=== PATIENT | male | born 1985 | race African-American/Black ===

== ENCOUNTER 2017-05-17 07:40 | Observation (INO) ==
--- NOTE | 2017-05-17 08:20 | Emergency Department Note ---
Disposition Clinical Impression: Abdominal pain Qualifiers: Abdominal location: epigastric Qualified Code(s): R10.13 - Epigastric pain Pancreatitis Qualifiers: Chronicity: acute Pancreatitis type: unspecified pancreatitis type Acute pancreatitis complication: no infection or necrosis Qualified Code(s): K85.90 - Acute pancreatitis without necrosis or infection, unspecified Intractable vomiting Qualifiers: Vomiting type: unspecified Nausea presence: with nausea Qualified Code(s): R11.2 - Nausea with vomiting, unspecified Disposition: Admitted As Inpatient Condition: Fair Referrals: NO,PCP [Primary Care Provider] - Forms: Work/School Release, ED Satisfaction Letter Abdominal Pain HPI - General Chief Complaint: ED Abdominal Pain Stated Complaint: abd cramping Time Seen by Provider: 05/17/17 08:13 Source: patient Mode of arrival: private vehicle Limitations: no limitations Nursing Notes Reviewed: Yes Vital Signs Reviewed: Yes - History of Present Illness HPI Narrative: Patient reports awakening at 2 AM with pain in the epigastric region which is described as sharp and cramping. He states it is there all the time occasionally just eases up a little bit. He has had 3 episodes of vomiting with the pain. Emesis has been without blood or mucus. He notes the pain is a little worse with deep breath but denies anything else really affecting it. The pain is not radiated to his chest or back. He has not had diarrhea and has had a normal bowel movement. He denies fevers, chills, weakness or dizziness. He is not having diffuse body aches or rashes. He states it feels like a bad flu. He denies chest pain, cough or shortness of breath. He denies frequent use of nonsteroidal medication or any alcohol. Denies any abdominal surgeries in the past. He states he has had similar pain in the past with opiate withdrawal but he has been clean for 2-3 months and has been on monthly Vivitrol shots. He relates his last oral intake was pizza yesterday afternoon and evening. He denies history of previous food intolerance. He relates with the previous withdrawal type symptoms he has been through CT, labs and ultrasound without finding abnormality. Pt Subjective Complaint: abdominal pain Onset (ago): hour(s) (6) Consistency: constant, Worsening Location: RUQ, epigastric Pain Severity: severe Pain Scale: 10 Quality: cramping, sharp Radiation: none Migration to: no migration Improves with: nothing Worsens with: other (Deep breath) Context: history of similar episodes Associated symptoms: Reports: nausea, vomiting. Denies: diarrhea, fever, chills , constipation, dysuria, hematemesis, hematochezia, melena, hematuria, anorexia , syncope Treatments prior to arrival: none - Related Data Home Medications Medication Instructions Recorded Confirmed Naltrexone Microspheres [Vivitrol] 380 mg IM QMONTH 05/17/17 05/17/17 Allergies Allergy/AdvReac Type Severity Reaction Status Date / Time No Known Allergies Allergy Verified 05/17/17 07:41 All systems ED: reviewed and negative except as stated. Abdominal Pain PMH - Past Medical History Medical history: Reports: no medical history, other (Reports previous opiate abuse, obesity) Male Surgical History: Reports: no surgical history, other (Excision of a gland from neck) Psychiatric history: Reports: no psych history - Social History Smoking status: Former smoker Alcohol use: Reports: rarely Drug use: Reports: marijuana Physical Exam - General Limitations: no limitations General appearance: alert, in distress - Head Head exam: atraumatic, normocephalic, normal inspection - Eye Eye exam: Present: normal appearance, PERRL, EOMI. Absent: scleral icterus, conjunctival injection - ENT ENT exam: normal exam, normal oropharynx, mucous membranes moist - Neck Neck exam: Present: normal inspection, full ROM, trachea midline - Chest Chest inspection: Present: normal inspection, symmetric chest wall rise. Absent : tenderness - Respiratory Respiratory exam: Present: normal lung sounds bilaterally. Absent: respiratory distress, wheezes, prolonged expiratory phase - Cardiovascular Cardiovascular exam: Present: regular rate, normal rhythm, normal heart sounds. Absent: tachycardia - Abdominal Exam Abdominal exam: Present: soft, normal bowel sounds. Absent: distention, guarding, rebound, rigidity, psoas sign, obturator sign, tenderness at McBurney' s Point, hernia Abdominal tenderness: Present: RUQ, mild, moderate - Extremities Exam Extremities exam: Present: normal inspection, full ROM, normal capillary refill. Absent: tenderness, pedal edema - Expanded Lower Extremity Exam Neurovascular/Tendon exam: Present: normal capillary refill. Absent: motor deficit, sensory deficit, tendon deficit Gait: observed and normal - Back Exam Back exam: Present: normal inspection, full ROM. Absent: tenderness, CVA tenderness (R), CVA tenderness (L) - Neurological Exam Neurological exam: Present: alert, oriented X3 - Psychiatric Psychiatric exam: Present: normal affect, normal mood - Skin Skin exam: Present: warm, dry, intact, normal color. Absent: diaphoresis, pallor Course Course Narrative: 924: Has Been Discussed with the Patient and Family. He Continues with Nausea and Vomiting. His Evaluation Is Largely Unremarkable Other Than a Slightly Elevated Amylase. At This Point He Is Not in Condition to Be Able to Be Discharged Home and I Will Speak with Dr. Varma about Continuation of IV Fluids. Patient States That He Does Not Want and Cannot Take Other Pain Medicines with His History of Opiate Dependence and His Monthly Vivitrol shot. Patient has been written for a dose of IV lorazepam and ketorolac. Vital Signs Temperature 97.6 F 05/17/17 07:43 Pulse Rate 56 05/17/17 07:43 Respiratory Rate 18 05/17/17 07:43 Blood Pressure 150/75 05/17/17 07:43 O2 Sat by Pulse Oximetry 96 05/17/17 07:43 Temperature 97.6 F 05/17/17 07:44 Pulse Rate 56 05/17/17 07:44 Respiratory Rate 18 05/17/17 07:44 Blood Pressure 150/75 05/17/17 07:44 O2 Sat by Pulse Oximetry 96 05/17/17 07:44 Oxygen Delivery Oxygen Delivery Room Air Abdominal Pain - Differential Diagnosis Differential Diagnosis: Likely: abdominal pain non-specific, gastroenteritis, pancreatitis, other (Biliary colic) - Medical Records Medical records reviewed: Yes I reviewed the patient's medical records. CT/CT abd pelvis wo no iv no oral IMPRESSION: 1. No acute intra-abdominal process identified. D/ / Joseph Mcdaniel MD / Joseph Mcdaniel MD US/US gall bladder IMPRESSION: Unremarkable right upper quadrant ultrasound. D/ / Coleman Cuenca MD / Coleman Cuenca MD - Lab Data Lab results reviewed: Yes I reviewed the patient's lab results. Result diagrams: 05/17/17 08:29 05/17/17 08:29 Lab Results 05/17/17 05/17/17 Range/Units 08:29 08:29 WBC 13.7 H (4.3-11.1) K/mcL RBC 5.01 (4.19-5.50) M/mcL Hgb 15.9 (12.9-16.9) g/dL Hct 45.5 (37.5-50.1) % MCV 90.8 (83.0-100.0) fL MCH 31.7 (28.0-33.3) pg MCHC 34.9 (31.6-35.5) g/dL RDW 12.6 (11.5-14.5) % Plt Count 335 (140-400) K/mcL MPV 9.4 (9.4-12.4) fL Immature Gran % 0.5 (0-4) % Seg Neutrophils % 83.6 % Lymphocytes % 10.6 % Monocytes % 4.8 % Eosinophils % 0.1 % Basophils % 0.4 % Neutrophils # 11.5 H (1.6-8.9) K/mcL Lymphocytes # 1.5 (0.6-4.6) K/mcL Monocytes # 0.7 (0.0-1.3) K/mcL Eosinophils # 0.0 (0.0-0.6) K/mcL Basophils # 0.1 (0.0-0.2) K/mcL Sodium 141 (136-145) mEq/L Potassium 3.9 (3.5-4.5) mEq/L Chloride 105 (98-109) mEq/L Carbon Dioxide 23 (19-29) mEq/L BUN 15 (8-26) mg/dL Creatinine 1.11 (0.72-1.25) mg/dL Est GFR ( Amer) > 60 (> 60) Est GFR (Non-Af Amer) > 60 (> 60) BUN/Creatinine Ratio 14 (6-26) Glucose 125 H (70-99) mg/dL Calculated Osmolality 294 (280-300) Calcium 10.0 (8.6-10.8) mg/dL Total Bilirubin 0.5 (0.2-1.2) mg/dL Direct Bilirubin 0.2 (0.0-0.5) mg/dL Indirect Bilirubin 0.3 (0.0-1.2) mg/dL AST 23 (5-34) Units/L ALT 35 (0-55) Units/L Alkaline Phosphatase 90 (38-126) Units/L Serum Total Protein 8.4 H (6.0-8.3) g/dL Albumin 4.3 (3.5-5.0) g/dL Globulin 4.1 H (2.4-3.5) g/dL Albumin/Globulin Ratio 1.0 L (1.1-2.2) Amylase 252 H (25-125) Units/L Lipase 50 (8-78) Units/L - Radiology Data Radiology results reviewed: Yes I reviewed the patient's radiology results. CT is performed of the abdomen and pelvis without IV oral contrast. Case lungs are free of infiltrate, effusion or mass. The liver, spleen and pancreas appear normal. The gallbladder is not distended or with wall thickening. No radiopaque stones are seen. The pancreas appears normal without inflammatory change. Kidneys are without stone or obstruction. The aorta appears normal in caliber. Bowel is without inflammation, obstruction or perforation. Adnexa is not well visualized but there is no evidence for inflammation in the right lower quadrant. No other acute abnormalities seen to explain this patient's pain. This is on my interpretation. Impressions Abdomen/Pelvis CT 05/17/17 08:20 IMPRESSION: No acute intra-abdominal or intrapelvic process. D/ / Clark Arriola MD / Clark Arriola MD Interpreting Provider: Clark Arriola MD
[2017-05-17] MEDS ORDERED: Dicyclomine 20 MG/2 ML AMPUL IM ONE (08:21)
[2017-05-17] MEDS ORDERED: 0.9 % Sodium Chloride 1,000 ML IVC ONE (08:21)
[2017-05-17] MEDS ORDERED: *HR* Promethazine 25 MG/ML VIAL IM ONE (08:21)
[2017-05-17 08:35] LABS: Basophils # 0.1 K/mcL (0.0-0.2); Basophils % 0.4 %; Eosinophils % 0.1 %; Hematocrit 45.5 % (37.5-50.1); Hemoglobin 15.9 g/dL (12.9-16.9); Immature Granulocytes % 0.5 % (0-4); Lymphocytes # 1.5 K/mcL (0.6-4.6); Lymphocytes % 10.6 %; Mean Corpuscular HGB Conc 34.9 g/dL (31.6-35.5); Mean Corpuscular Hemoglobin 31.7 pg (28.0-33.3); Mean Corpuscular Volume 90.8 fL (83.0-100.0); Mean Platelet Volume 9.4 fL (9.4-12.4); Monocytes # 0.7 K/mcL (0.0-1.3); Monocytes % 4.8 %; Neutrophils # 11.5 K/mcL (1.6-8.9); Platelet Count 335 K/mcL (140-400); Red Blood Count 5.01 M/mcL (4.19-5.50); Red Cell Distribution Width 12.6 % (11.5-14.5); Segmented Neutrophils % 83.6 %
[2017-05-17 08:50] LABS: Alanine Aminotransferase 35 Units/L (0-55); Albumin 4.3 g/dL (3.5-5.0); Alkaline Phosphatase 90 Units/L (38-126); Amylase 252 Units/L (25-125); Aspartate Amino Transferase 23 Units/L (5-34); BUN/Creatinine Ratio 14 (6-26); Bilirubin,Direct 0.2 mg/dL (0.0-0.5); Bilirubin,Indirect 0.3 mg/dL (0.0-1.2); Bilirubin,Total 0.5 mg/dL (0.2-1.2); Blood Urea Nitrogen 15 mg/dL (8-26); Carbon Dioxide 23 mEq/L (19-29); Chloride 105 mEq/L (98-109); Globulin 4.1 g/dL (2.4-3.5); Glucose 125 mg/dL (70-99); Lipase 50 Units/L (8-78); Osmolality,Calculated 294 (280-300); Potassium 3.9 mEq/L (3.5-4.5); Sodium 141 mEq/L (136-145); Total Protein 8.4 g/dL (6.0-8.3); eGFR For African Americans > 60 (> 60); eGFR For Non-African Americans > 60 (> 60)
[2017-05-17] MEDS ORDERED: Ketorolac 30 MG/ML VIAL IVP ONE (09:25)
[2017-05-17] MEDS ORDERED: *HR* LORazepam 2 MG/ML VIAL IVP ONE (09:25)
[2017-05-17] MEDS ORDERED: 0.9 % Sodium Chloride 1,000 ML IVC SCH ×2 (09:30→11:44)
[2017-05-17] MEDS ORDERED: Pantoprazole 40 MG VIAL IVP ONE (09:42)
[2017-05-17 10:08] LABS: Amphetamine Screen,Urine Negative ng/mL (Cutoff=1000); Barbiturate Screen,Urine Negative ng/mL (Cutoff=200); Benzodiazepines Screen,Urine Negative ng/mL (Cutoff=200); Cannabinoid Screen,Urine Positive ng/mL (Cutoff = 50); Cocaine Screen,Urine Negative ng/mL (Cutoff= 300); Opiate Screen,Urine Negative ng/mL (Cutoff=300); Phencyclidine Screen,Urine Negative ng/mL (Cutoff=25)
[2017-05-17] MEDS ORDERED: Naloxone 0.4 MG/ML INJ IVP PRN (11:44)
[2017-05-17] MEDS: *HR* Promethazine 25 MG/ML VIAL IVP PRN ×2 (12:24→21:55)
[2017-05-17] MEDS: Ketorolac 30 MG/ML VIAL IVP PRN ×2 (12:24→18:39)
--- NOTE | 2017-05-17 16:47 | Internal Med History&Physical ---
Date of Encounter: 05/17/17 Time of Encounter: 16:15 Assessment and Plan (1) Abdominal pain Current visit: Yes Status: Acute Suspect viral gastroenteritis. Doubt pancreatitis. He will be given clear liquid diet and IV fluids. We will reassess and recheck labs in a.m. Qualifiers: Abdominal location: epigastric Qualified Code(s): R10.13 - Epigastric pain Internal Medicine - H&P: HPI Chief complaint: Abdominal pain and vomiting Admitted From: Home Plans for Post Hospital Care: Home History of present illness: Mr. Zuniga is a 31 year old male who came to the emergency room stating he had onset of epigastric abdominal discomfort approximately 6 PM daily. He awakened at 2 AM today and had 3 episodes of vomiting. Abdominal pain was still present. He describes as a sharp nonradiating sensation in his epigastric area. There was no hematemesis noted. He came to the emergency room and was evaluated and admitted to [facility] floor for ongoing care needs. He states he had previous similar discomfort with vomiting when he was withdrawing from opiates several months ago. He reports he has been completely clean for the last 2 months. He denies disorders of his liver gallbladder or exocrine pancreas. He denies other family members or contacts having similar symptoms. Past Med Surg Social Fam HX - Past Medical History Medical history: no medical history, other Psychiatric history: no psych history - Past Surgical History Surgical History: no surgical history, other - Social History Smoking Status: Former smoker Smokeless Tobacco Status: No Alcohol use: rarely Drug use: marijuana - Family History Mother History Unknown: Yes Internal Medicine - H&P: Meds Naltrexone Microspheres [Vivitrol] 380 mg IM QMONTH 05/17/17 [History] Allergies No Known Allergies Allergy (Verified 05/17/17 07:41) All Systems PM: A 10-system review of systems was performed and is negative for pertinent findings except as documented above in the HPI. Review of systems: Gen.: He states his weight is increased over 50 pounds in the past few months related to increased food intake since he has come off opiates Cardiovascular: He denies [place] hypertension heart failure angina DVT or pulmonary embolus Respiratory: He is a lifelong nonsmoker cigarettes. He does smoke daily marijuana. He denies chronic lung disease GI: As per history of present illness : He denies hematuria dysuria or kidney stones Neurologic: He denies large distribution strokes or seizures fainting spells or migraine headaches Endocrine: He denies diabetes thyroid disease or hyperlipidemia Hematology/oncology: He denies blood disorders cancers or anemia Psychiatric: Has occasional feelings of anxiety. He denies other mental health diagnoses Musk skeletal: Denies arthritis gout or other bone joint or muscle disorders - Constitutional Vitals: Temp Pulse Resp BP Pulse Ox 99.2 F 54 14 135/88 97 05/17/17 11:43 05/17/17 11:43 05/17/17 11:43 05/17/17 11:43 05/17/17 11:43 Exam: Gen.: He is a well-developed well-nourished male lying in bed who appears in no acute distress at present time HEENT: Head is atraumatic and normocephalic. Eyes: EOMI. There is no scleral icterus. Mouth: Mucosa is moist. Neck: Supple and nontender. There is no thyromegaly or adenopathy noted. Heart: Regular without murmurs gallops or ectopics Lungs: No wheezes or crackles are heard. Abdomen: Bowel sounds are very diminished. There is minimal discomfort to palpation in the epigastric area. No masses or guarding noted. Extremities: There is no cyanosis edema or clubbing noted. Dorsalis pedis and posttibial pulses are 1-2 over 2 bilaterally. Neurologic: Mental status: He is talkative and a good historian. Cranial nerves : Smile is symmetric. Forehead wrinkles bilaterally. Tongue protrudes midline. EOMI. Motor: There is no pronator drift. Cerebellar: Finger to nose is intact bilaterally. Skin: Warm and dry Internal Med - H&P Results - Labs CBC & Chem 7: 05/17/17 08:29 05/17/17 08:29
[2017-05-17] MEDS: 0.45 % Sodium Chloride w/KCl 20 MEQ/1,000 ML MLS IVC SCH (17:34)
[2017-05-17] MEDS: Ondansetron 4 MG/2 ML VIAL IVP PRN (18:36)
[2017-05-17] MEDS: traZODone 50 MG TABLET PO SCH (21:49)
[2017-05-18] MEDS: 0.45 % Sodium Chloride w/KCl 20 MEQ/1,000 ML MLS IVC SCH (04:53)
[2017-05-18 08:17] LABS: Basophils % 0.2 %; Eosinophils % 0.2 %; Hematocrit 43.6 % (37.5-50.1); Hemoglobin 15.2 g/dL (12.9-16.9); Immature Granulocytes % 0.5 % (0-4); Lymphocytes # 2.3 K/mcL (0.6-4.6); Lymphocytes % 17.9 %; Mean Corpuscular HGB Conc 34.9 g/dL (31.6-35.5); Mean Corpuscular Hemoglobin 32.2 pg (28.0-33.3); Mean Corpuscular Volume 92.4 fL (83.0-100.0); Mean Platelet Volume 9.8 fL (9.4-12.4); Monocytes # 1.2 K/mcL (0.0-1.3); Monocytes % 9.4 %; Platelet Count 325 K/mcL (140-400); Red Blood Count 4.72 M/mcL (4.19-5.50); Red Cell Distribution Width 12.8 % (11.5-14.5); Segmented Neutrophils % 71.8 %
[2017-05-18 08:24] LABS: Neutrophils # 9.3 K/mcL (1.6-8.9)
[2017-05-18 08:26] LABS: BUN/Creatinine Ratio 12 (6-26); Blood Urea Nitrogen 13 mg/dL (8-26); Calcium 9.1 mg/dL (8.6-10.8); Carbon Dioxide 24 mEq/L (19-29); Chloride 106 mEq/L (98-109); Glucose 83 mg/dL (70-99); Magnesium 1.8 mg/dL (1.6-2.6); Osmolality,Calculated 293 (280-300); Potassium 3.5 mEq/L (3.5-4.5); Sodium 142 mEq/L (136-145); eGFR For African Americans > 60 (> 60); eGFR For Non-African Americans > 60 (> 60)
[2017-05-18] MEDS ORDERED: Pantoprazole 40 MG VIAL IVP SCH (09:00)
--- NOTE | 2017-05-18 10:00 | Internal Med Progress Note ---
Date of Encounter: 05/18/17 Time of Encounter: 09:52 - Assessment and plan (1) Abdominal pain Current Visit: Yes Status: Acute Assessment and plan: May 18. Improved. Continue present regimen. We will advance diet to full liquids for supper. Anticipate discharge home tomorrow if stable. Qualifiers: Abdominal location: epigastric Qualified Code(s): R10.13 - Epigastric pain - Subjective Interval history: May 18. He has no new complaints and states he feels better. - Constitutional Vitals: Temp Pulse Resp BP Pulse Ox 98.7 F 61 16 120/69 96 05/18/17 07:22 05/18/17 07:22 05/18/17 07:22 05/18/17 07:22 05/18/17 07:22 Exam: He is lying in bed and appears in no acute distress. His affect is cheerful. I reviewed his medications and lab results. Internal Medicine: Result - Labs CBC & Chem 7: 05/18/17 06:10 05/18/17 06:10 Labs: Short CBC 05/18/17 Range/Units 06:10 WBC 12.9 H (4.3-11.1) K/mcL Hgb 15.2 (12.9-16.9) g/dL Hct 43.6 (37.5-50.1) % Plt Count 325 (140-400) K/mcL Neutrophils # 9.3 H (1.6-8.9) K/mcL BMP 05/18/17 06:10 Sodium 142 Potassium 3.5 Chloride 106 Carbon Dioxide 24 BUN 13 Creatinine 1.07 Glucose 83 Calcium 9.1 Consult Discharge Plan - Plan Referrals: NO,PCP [Primary Care Provider] - 1 week
[2017-05-18] MEDS: Ketorolac 30 MG/ML VIAL IVP PRN ×3 (11:26→23:53)
[2017-05-18] MEDS: Ondansetron 4 MG/2 ML VIAL IVP PRN (11:27)
[2017-05-18] MEDS: *HR* Promethazine 25 MG/ML VIAL IVP PRN (18:05)
[2017-05-18] MEDS ORDERED: Acetaminophen 325 MG TABLET PO PRN (22:03)
[2017-05-18] MEDS: traZODone 50 MG TABLET PO SCH (22:30)
[2017-05-19] MEDS: Ondansetron 4 MG/2 ML VIAL IVP PRN (00:01)
[2017-05-19] MEDS: 0.45 % Sodium Chloride w/KCl 20 MEQ/1,000 ML MLS IVC SCH (01:49)
[2017-05-19] MEDS: Ketorolac 30 MG/ML VIAL IVP PRN (01:52)
--- NOTE | 2017-05-19 16:30 | Discharge Summary ---
Date of Encounter: 05/19/17 Time of Encounter: 09:45 - Discharge Diagnosis (1) Abdominal pain Priority: Primary Status: Acute Qualifiers: Abdominal location: epigastric Qualified Code(s): R10.13 - Epigastric pain - Discharge Medications Prescriptions: Promethazine [Phenergan] 12.5 mg RC Q6HR #8 supp.rect Home Medications: Naltrexone Microspheres [Vivitrol] 380 mg IM QMONTH 05/17/17 [History] Promethazine [Phenergan] 12.5 mg RC Q6HR #8 supp.rect 05/19/17 [Rx] Allergies/Adverse Reactions: Allergies No Known Allergies Allergy (Verified 05/17/17 07:41) Date of admission: 05/17/17 10:43 Primary care physician: Orin Chiu CNP - Patient Status Disposition: Home, Self-Care Condition: Fair Functional capacity at discharge: independent ambulation Overall status at discharge: patient is progressing back to baseline - Discharge Instructions Follow Up With: Orin Chiu CNP [Advanced Practice Nurse] - 1 week - Diet and Activity Activity: return to work once cleared by your PCP/specialist, resume usual activities as tolerated Hospital course: Mr. Zuniga is a 31 year old male who came to the emergency room stating he had onset of epigastric abdominal discomfort approximately 6 PM daily. He awakened at 2 AM today and had 3 episodes of vomiting. Abdominal pain was still present. He describes as a sharp nonradiating sensation in his epigastric area. There was no hematemesis noted. He came to the emergency room and was evaluated and admitted to [facility] for ongoing care needs. Initial orders were written by the emergency room physician. I saw him on May 17 and performed the history and physical. He was given IV fluids and diet was advanced as tolerated. He had decrease in abdominal pain. He had no further vomiting after May 18. When I saw him on May 19 he felt stable for discharge home. His abdominal discomfort had not completely resolved but he felt he would be able to tolerate adequate amount of food and liquids at home. He will be given Phenergan suppositories for prn use for nausea. He will follow with Orin Chiu CNP within 1 week. - Time Spent with Patient Total time spent providing and/or coordinating discharge services: - Constitutional Vitals: Temp Pulse Resp BP Pulse Ox 99.4 F 67 14 136/86 94 05/19/17 06:40 05/19/17 06:40 05/19/17 06:40 05/19/17 06:40 05/19/17 06:40
[2017-05-19 16:40] VITALS: BP 130/69
== END 2017-05-19 09:14 | disposition home or self-care (01) ==
LOC: EMEROOPIK 07:40 → INPPIK 07:40
PROVIDERS: ADMIT Internal Medicine; ATTEND Internal Medicine

== ENCOUNTER 2017-11-21 09:49 | Observation (INO) ==
[2017-11-21] MEDS ORDERED: 0.9 % Sodium Chloride 1,000 ML IVC SCH (10:15)
[2017-11-21] MEDS ORDERED: Vancomycin 1,000 MG in D5% in Water 250 ML IVPB ONE (10:15)
[2017-11-21] MEDS ORDERED: Clindamycin 600 MG/50 ML 600 MG/50 ML IV.SOLN IVPB ONE (10:15)
--- NOTE | 2017-11-21 10:21 | Emergency Department Note ---
Disposition Clinical Impression: Facial cellulitis Disposition: Admitted As Inpatient Condition: Good Referrals: Orin Chiu ELECTROLOG OPERATOR [Primary Care Provider] - Forms: ED Satisfaction Letter, Work/School Release Time of Disposition: 12:56 General Adult HPI - General Chief complaint: ED General Medical Stated complaint: upper lip swelling Time Seen by Provider: 11/21/17 10:00 Source: patient Mode of arrival: ambulatory Limitations: no limitations Nursing Notes Reviewed: Yes Vital Signs Reviewed: Yes - History of Present Illness HPI Narrative: -[place] male who had an abscess on his lip last night popped it drained it now that he woke up at swelling of the lip and its black and necrotic or he popped the areas have facial swelling and left hand side of the face he denies difficult swallowing difficulty breathing he denies any blurred vision double vision loss vision he denies any neck pain or neck stiffness patient states though that he feels that his face is swollen and feels like it is and is under his eye and above his left hand side denies any decoy swallowing difficulty breathing but states that it does hurt some throbbing type pain nothing seems to make it better nothing seems to make it worse 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: face Radiation: non-radiation Pain Severity: moderate Pain Scale: 4 Consistency: constant Improves with: nothing Worsens with: nothing Associated symptoms: Denies: confusion, chest pain, cough, diaphoresis, fever/ chills, headaches, loss of appetite, malaise, nausea/vomiting, shortness of breath, syncope, weakness Treatments Prior to Arrival: none - Related Data Previous Rx's Medication Instructions Recorded DiphenhydraMINE [Benadryl] 25 - 50 mg PO Q6HR #30 capsule 11/08/17 Allergies Allergy/AdvReac Type Severity Reaction Status Date / Time No Known Allergies Allergy Verified 05/17/17 07:41 All systems ED: reviewed and negative except as stated. Review of Systems: As Per HPI Constitutional: Denies: fever, chills, weakness Eyes: Denies: eye pain, eye discharge ENT ED: Reports: other (facial swellling). Denies: ear pain, throat pain Cardiovascular: Denies: chest pain, palpitations Respiratory: Denies: cough, dyspnea Gastrointestinal: Denies: abdominal pain, nausea, vomiting Genitourinary: Denies: urgency, dysuria Musculoskeletal: Denies: back pain Integumentary: Denies: rash, abrasion Neurological: Denies: headache Psychiatric: Denies: anxiety, depression Endocrine: Denies: fatigue Hematological/Lymphatic: Denies: easy bleeding, easy bruising Allergic/Immunologic: Reports: facial swelling Past Medical History - Past Medical History Attestation: Yes The following information was validated with the patient. Source: patient, old records reviewed, nursing notes reviewed Medical history: Reports: no medical history Surgical history: Reports: no surgical history, other Psychiatric history: Reports: no psych history - Social History Smoking Status: Former smoker Smokeless Tobacco Status: No Alcohol use: Reports: rarely Drug use: Reports: marijuana Physical Exam - General Limitations: no limitations General appearance: alert, in no apparent distress, anxious, obese - Head Head exam: atraumatic, normocephalic, normal inspection - Eye Eye exam: Present: normal appearance, PERRL, EOMI - ENT ENT exam: normal oropharynx, mucous membranes moist, TM's normal bilaterally, normal external ear exam - Expanded ENT Exam Nose/Mouth: 1 - facial swelling 2 - black necrotic abscess - Neck Neck exam: Present: normal inspection, full ROM, trachea midline - Chest Chest inspection: Present: normal inspection, symmetric chest wall rise - Respiratory Respiratory exam: Present: normal lung sounds bilaterally - Cardiovascular Cardiovascular exam: Present: regular rate, normal rhythm, normal heart sounds - Abdominal Exam Abdominal exam: Present: soft, Non-Tender, normal bowel sounds. Absent: mass, pulsatile mass - Expanded Upper Extremity Exam Shoulder exam: Present: normal inspection, full ROM Arm exam: Present: normal inspection, full ROM Elbow exam: Present: normal inspection, full ROM Forearm/Wrist exam: Present: normal inspection, full ROM Hand exam: Present: normal inspection, full ROM Vascular exam: Normal: capillary refill, radial pulse - Expanded Lower Extremity Exam Hip/Pelvis exam: Present: normal inspection, full ROM Upper leg exam: Present: normal inspection, full ROM Knee exam: Present: normal inspection, full ROM Lower leg exam: Present: normal inspection, full ROM Ankle exam: Present: normal inspection, full ROM Foot/toe exam: Present: normal inspection, full ROM Neurovascular/Tendon exam: Present: normal capillary refill, normal fine/light touch. Absent: motor deficit, sensory deficit, tendon deficit Gait: observed and normal - Back Exam Back exam: Present: normal inspection, full ROM. Absent: muscle spasm - Neurological Exam Neurological exam: Present: alert, oriented X3, CN II-XII intact, normal gait - Psychiatric Psychiatric exam: Present: normal affect - Skin Skin exam: Present: warm, dry, intact, normal color Course Course Narrative: Patient seen and examined IV established blood cultures obtained septic workup done patient shows have cellulitis of the face on the CAT scan as result will be admitted Vital Signs Temperature 97.8 F 11/21/17 09:52 Pulse Rate 106 11/21/17 09:52 Respiratory Rate 17 11/21/17 09:52 Blood Pressure 142/90 11/21/17 09:52 O2 Sat by Pulse Oximetry 95 11/21/17 09:52 Temperature 97.8 F 11/21/17 09:52 Pulse Rate 106 11/21/17 09:52 Respiratory Rate 17 11/21/17 09:52 Blood Pressure 142/90 11/21/17 09:52 O2 Sat by Pulse Oximetry 95 11/21/17 09:52 Oxygen Delivery Oxygen Delivery Room Air Medical Decision Making - Medical Records Medical records reviewed: Yes I reviewed the patient's medical records. - Lab Data Lab results reviewed: Yes I reviewed the patient's lab results. Result diagrams: 11/21/17 10:30 11/21/17 10:30 Lab Results 11/21/17 11/21/17 11/21/17 Range/Units 10:30 10:30 10:30 WBC 8.0 (4.3-11.1) K/mcL RBC 4.43 (4.19-5.50) M/mcL Hgb 13.6 (12.9-16.9) g/dL Hct 39.5 (37.5-50.1) % MCV 89.2 (83.0-100.0) fL MCH 30.7 (28.0-33.3) pg MCHC 34.4 (31.6-35.5) g/dL RDW 12.4 (11.5-14.5) % Plt Count 299 (140-400) K/mcL MPV 10.1 (9.4-12.4) fL Immature Gran % 0.4 (0-4) % Seg Neutrophils % 65.3 % Lymphocytes % 20.6 % Monocytes % 12.0 % Eosinophils % 1.5 % Basophils % 0.2 % Neutrophils # 5.2 (1.6-8.9) K/mcL Lymphocytes # 1.7 (0.6-4.6) K/mcL Monocytes # 1.0 (0.0-1.3) K/mcL Eosinophils # 0.1 (0.0-0.6) K/mcL Basophils # 0.0 (0.0-0.2) K/mcL PT 11.0 (9.4-12.1) Seconds INR 1.0 APTT 32.2 (26.0-36.0) Seconds Sodium 140 (136-145) mEq/L Potassium 4.5 (3.5-4.5) mEq/L Chloride 105 (98-109) mEq/L Carbon Dioxide 25 (19-29) mEq/L BUN 13 (8-26) mg/dL Creatinine 1.25 (0.72-1.25) mg/dL Est GFR ( Amer) > 60 (> 60) Est GFR (Non-Af Amer) > 60 (> 60) BUN/Creatinine Ratio 10 (6-26) Glucose 108 H (70-99) mg/dL Calculated Osmolality 291 (280-300) Lactic Acid (0.5-2.2) mmol/L Calcium 10.1 (8.6-10.8) mg/dL Total Bilirubin 0.4 (0.2-1.2) mg/dL AST 31 (5-34) Units/L ALT 25 (0-55) Units/L Alkaline Phosphatase 65 (38-126) Units/L Serum Total Protein 7.5 (6.0-8.3) g/dL Albumin 3.7 (3.5-5.0) g/dL Globulin 3.8 H (2.4-3.5) g/dL Albumin/Globulin Ratio 1.0 L (1.1-2.2) 11/21/17 Range/Units 10:30 WBC (4.3-11.1) K/mcL RBC (4.19-5.50) M/mcL Hgb (12.9-16.9) g/dL Hct (37.5-50.1) % MCV (83.0-100.0) fL MCH (28.0-33.3) pg MCHC (31.6-35.5) g/dL RDW (11.5-14.5) % Plt Count (140-400) K/mcL MPV (9.4-12.4) fL Immature Gran % (0-4) % Seg Neutrophils % % Lymphocytes % % Monocytes % % Eosinophils % % Basophils % % Neutrophils # (1.6-8.9) K/mcL Lymphocytes # (0.6-4.6) K/mcL Monocytes # (0.0-1.3) K/mcL Eosinophils # (0.0-0.6) K/mcL Basophils # (0.0-0.2) K/mcL PT (9.4-12.1) Seconds INR APTT (26.0-36.0) Seconds Sodium (136-145) mEq/L Potassium (3.5-4.5) mEq/L Chloride (98-109) mEq/L Carbon Dioxide (19-29) mEq/L BUN (8-26) mg/dL Creatinine (0.72-1.25) mg/dL Est GFR ( Amer) (> 60) Est GFR (Non-Af Amer) (> 60) BUN/Creatinine Ratio (6-26) Glucose (70-99) mg/dL Calculated Osmolality (280-300) Lactic Acid 1.7 (0.5-2.2) mmol/L Calcium (8.6-10.8) mg/dL Total Bilirubin (0.2-1.2) mg/dL AST (5-34) Units/L ALT (0-55) Units/L Alkaline Phosphatase (38-126) Units/L Serum Total Protein (6.0-8.3) g/dL Albumin (3.5-5.0) g/dL Globulin (2.4-3.5) g/dL Albumin/Globulin Ratio (1.1-2.2) - Radiology Data Radiology results reviewed: Yes I reviewed the patient's radiology results. ITS Impressions Face CT 11/21/17 10:15 IMPRESSION: 1. Swelling is seen in the region of the upper lip. No focal/drainable fluid collection. 2. Otherwise, no acute abnormality identified. D/ / Kenn Hamilton MD / Kenn Hamilton MD Interpreting Provider: Kenn Hamilton MD Critical Care Time Critical Care Time: No
[2017-11-21 10:48] LABS: Basophils % 0.2 %; Eosinophils # 0.1 K/mcL (0.0-0.6); Eosinophils % 1.5 %; Hematocrit 39.5 % (37.5-50.1); Hemoglobin 13.6 g/dL (12.9-16.9); Immature Granulocytes % 0.4 % (0-4); Lymphocytes # 1.7 K/mcL (0.6-4.6); Lymphocytes % 20.6 %; Mean Corpuscular HGB Conc 34.4 g/dL (31.6-35.5); Mean Corpuscular Hemoglobin 30.7 pg (28.0-33.3); Mean Corpuscular Volume 89.2 fL (83.0-100.0); Mean Platelet Volume 10.1 fL (9.4-12.4); Neutrophils # 5.2 K/mcL (1.6-8.9); Platelet Count 299 K/mcL (140-400); Red Blood Count 4.43 M/mcL (4.19-5.50); Red Cell Distribution Width 12.4 % (11.5-14.5); Segmented Neutrophils % 65.3 %
[2017-11-21 10:59] LABS: Activated Partial Thrombo Time 32.2 Seconds (26.0-36.0)
[2017-11-21 11:08] LABS: Alanine Aminotransferase 25 Units/L (0-55); Albumin 3.7 g/dL (3.5-5.0); Alkaline Phosphatase 65 Units/L (38-126); Aspartate Amino Transferase 31 Units/L (5-34); BUN/Creatinine Ratio 10 (6-26); Bilirubin,Total 0.4 mg/dL (0.2-1.2); Blood Urea Nitrogen 13 mg/dL (8-26); Calcium 10.1 mg/dL (8.6-10.8); Carbon Dioxide 25 mEq/L (19-29); Chloride 105 mEq/L (98-109); Globulin 3.8 g/dL (2.4-3.5); Glucose 108 mg/dL (70-99); Osmolality,Calculated 291 (280-300); Potassium 4.5 mEq/L (3.5-4.5); Sodium 140 mEq/L (136-145); Total Protein 7.5 g/dL (6.0-8.3); eGFR For African Americans > 60 (> 60); eGFR For Non-African Americans > 60 (> 60)
[2017-11-21] MEDS: 0.9 % Sodium Chloride 1,000 ML IVC SCH ×2 (13:30→23:39)
[2017-11-21] MEDS ORDERED: Ibuprofen 400 MG TABLET PO PRN (13:52)
[2017-11-21] MEDS ORDERED: Naloxone 0.4 MG/ML INJ IVP PRN (13:52)
[2017-11-21] MEDS ORDERED: Ondansetron ODT 4 MG TAB.RAPDIS SL PRN (13:52)
[2017-11-21] MEDS ORDERED: *HR* HYDROcodone/Acet 5/325 mg TABLET PO PRN (13:52)
[2017-11-22 05:42] LABS: Basophils % 0.5 %; Eosinophils # 0.2 K/mcL (0.0-0.6); Hematocrit 37.7 % (37.5-50.1); Hemoglobin 12.8 g/dL (12.9-16.9); Immature Granulocytes % 0.5 % (0-4); Lymphocytes % 27.8 %; Mean Corpuscular Hemoglobin 30.5 pg (28.0-33.3); Mean Corpuscular Volume 89.8 fL (83.0-100.0); Mean Platelet Volume 9.8 fL (9.4-12.4); Monocytes # 0.7 K/mcL (0.0-1.3); Neutrophils # 4.4 K/mcL (1.6-8.9); Platelet Count 270 K/mcL (140-400); Red Cell Distribution Width 12.3 % (11.5-14.5); Segmented Neutrophils % 60.2 %
[2017-11-22] MEDS: 0.9 % Sodium Chloride 1,000 ML IVC SCH (06:44)
[2017-11-22 06:58] VITALS: BP 116/73
--- NOTE | 2017-12-02 11:31 | Internal Med History&Physical ---
Date of Encounter: 12/02/17 Time of Encounter: 11:30 Internal Medicine - H&P: HPI Admitted From: Emergency Dept History of present illness: Mr. Zuniga is a 32 year old male Past Med Surg Social Fam HX - Past Medical History Medical history: no medical history Psychiatric history: no psych history - Past Surgical History Surgical History: no surgical history, other - Social History Smoking Status: Former smoker Smokeless Tobacco Status: No Alcohol use: rarely Drug use: marijuana Internal Medicine - H&P: Meds DiphenhydraMINE [Benadryl] 25 - 50 mg PO Q6HR #30 capsule 11/08/17 [Rx] 3 Allergy/AdvReac Type Severity Reaction Status Date / Time No Known Allergies Allergy Verified 05/17/17 07:41 All Systems PM: A 10-system review of systems was performed and is negative for pertinent findings except as documented above in the HPI. - Constitutional Vitals: Temp Pulse Resp BP Pulse Ox 98.2 F 80 18 116/73 97 11/22/17 06:54 11/22/17 06:54 11/22/17 06:54 11/22/17 06:54 11/22/17 06:54 Internal Med - H&P Results - Labs CBC & Chem 7: 11/22/17 04:57 11/21/17 10:30
--- NOTE | 2017-12-02 11:33 | Discharge Summary ---
Date of Encounter: 12/02/17 Time of Encounter: 11:30 - Discharge Medications Home Medications: DiphenhydraMINE [Benadryl] 25 - 50 mg PO Q6HR #30 capsule 11/08/17 [Rx] Allergies/Adverse Reactions: 3 Allergy/AdvReac Type Severity Reaction Status Date / Time No Known Allergies Allergy Verified 05/17/17 07:41 Date of admission: 11/21/17 13:11 Primary care physician: Oirn Chiu CNP - Patient Status Disposition: Left Against Medical Advice Condition: Good - Discharge Instructions Follow Up With: Orin Chiu CNP [Primary Care Provider] - 1 week Hospital course: Mr. Zuniga is a 32 year old male [facility] facial swelling. He left AMA before I saw him. - Time Spent with Patient Total time spent providing and/or coordinating discharge services: - Constitutional Vitals: Temp Pulse Resp BP Pulse Ox 98.2 F 80 18 116/73 97 11/22/17 06:54 11/22/17 06:54 11/22/17 06:54 11/22/17 06:54 11/22/17 06:54
== END 2017-11-22 08:35 | disposition left against medical advice (07) ==
LOC: INPPIK 09:49 → EMEROOPIK 09:49 → INPPIK 13:45
PROVIDERS: ADMIT Internal Medicine; ATTEND Internal Medicine

== ENCOUNTER 2019-07-20 03:08 | Observation (INO) ==
[2019-07-20] MEDS ORDERED: 0.9 % Sodium Chloride 1,000 ML IVC ONE (03:19)
[2019-07-20] MEDS ORDERED: *HR* Promethazine 25 MG/ML VIAL IVP ONE ×2 (03:19→09:30)
--- NOTE | 2019-07-20 03:20 | Emergency Department Note ---
Disposition Clinical Impression: Alcohol withdrawal delirium Disposition: Admitted As Inpatient Condition: Fair Referrals: NONE,PCP [Primary Care Provider] - Forms: ED Satisfaction Letter Time of Disposition: 07:38 Alcohol HPI - General Chief Complaint: ED Alcohol Abuse Stated Complaint: alchohol withdraw Time Seen by Provider: 07/20/19 03:10 Source: patient Mode of arrival: ambulatory Limitations: no limitations Nursing Notes Reviewed: Yes Vital Signs Reviewed: Yes - History of Present Illness HPI Narrative: 33-year-old male who presents to the emergency room who has not had a history of drug abuse in the past. This converted over to alcohol. Patient states he is been on Glucotrol control his alcohol. Patient denies any blurred vision double vision loss vision. He states his had nausea vomiting is having some abdominal cramps. There is been no reported seizure activity but he has been shaking. Patient states is been 2 days since he last drank. He was drinking a case of beer A day plus hard liquor patient denies any trauma. He denies any blurred vision double vision loss vision numbness tingling weakness recent weight gain or weight loss. Also reviewed and are otherwise negative Pt Subjective Complaint: alcohol withdrawal Last Drink: days (ago) Alcohol Type: and beer Chronic Alcohol Use: Yes Previous Visits for Alcohol Intoxication?: No Recent Trauma: No Associated symptoms: Reports: nausea. Denies: vomiting, syncope, seizure, diaphoresis, tremors, abdominal pain, hematemesis, melena, depression, Injury to Self, Trauma Treatments prior to arrival: none - Related Data Previous Rx's Medication Instructions Recorded Chlordiazepoxide [Librium] 50 mg PO TID 5 Days #30 capsule 07/13/19 HYDROcodone/Acet 5/325 mg [[place] 1 tab PO Q4H PRN 2 Days #5 tab 07/13/19 5-325 mg] Ondansetron ODT [Zofran ODT] 4 mg SL Q6HR #10 tab.rapdis 07/13/19 Allergies Allergy/AdvReac Type Severity Reaction Status Date / Time No Known Allergies Allergy Verified 01/19/19 14:56 All systems ED: reviewed and negative except as stated. Review of Systems: As Per HPI Constitutional: Denies: fever, chills, weakness Eyes: Denies: eye pain, eye discharge ENT ED: Denies: ear pain, throat pain Cardiovascular: Denies: chest pain, palpitations Respiratory: Denies: dyspnea Gastrointestinal: Reports: abdominal pain, nausea, vomiting Genitourinary: Denies: urgency, dysuria, frequency Musculoskeletal: Denies: back pain, neck pain Integumentary: Denies: rash, abrasion Neurological: Denies: headache Psychiatric: Denies: anxiety Endocrine: Denies: fatigue Hematological/Lymphatic: Denies: easy bleeding Allergic/Immunologic: Denies: facial swelling Past Medical History - Past Medical History Attestation: Yes The following information was validated with the patient. Source: patient, old records reviewed, obtained from family, nursing notes revie wed Medical history: Reports: arthritis, GERD, other (Patient has been through drug withdrawal in the past) Surgical history: Reports: cholecystectomy, other (Pneumothorax and chest tube) Psychiatric history: Reports: anxiety - Social History Smoking Status: Former smoker Smokeless Tobacco Status: No Alcohol use: Reports: heavy Drug use: Reports: opiates, marijuana Physical Exam - General Limitations: no limitations General appearance: alert - Head Head exam: atraumatic, normocephalic, normal inspection - Eye Eye exam: Present: normal appearance, PERRL, EOMI - ENT ENT exam: normal exam, normal oropharynx, mucous membranes moist - Expanded ENT Exam External ear exam: Present: normal external inspection Mouth exam: Present: normal external inspection Teeth exam: Present: normal inspection Throat exam: Present: normal inspection - Neck Neck exam: Present: normal inspection, full ROM, trachea midline - Chest Chest inspection: Present: normal inspection, symmetric chest wall rise - Respiratory Respiratory exam: Present: normal lung sounds bilaterally - Cardiovascular Cardiovascular exam: Present: regular rate, normal rhythm, normal heart sounds - Abdominal Exam Abdominal exam: Present: soft, Non-Tender, normal bowel sounds. Absent: tenderness, distention, guarding, rebound, rigidity, mass, pulsatile mass - Extremities Exam Extremities exam: Present: normal inspection, full ROM. Absent: tenderness, pedal edema - Expanded Upper Extremity Exam Shoulder exam: Present: normal inspection, full ROM Arm exam: Present: normal inspection, full ROM Elbow exam: Present: normal inspection, full ROM Forearm/Wrist exam: Present: normal inspection, full ROM Hand exam: Present: normal inspection, full ROM Vascular exam: Normal: capillary refill, radial pulse - Expanded Lower Extremity Exam Hip/Pelvis exam: Present: normal inspection, full ROM Upper leg exam: Present: normal inspection, full ROM Knee exam: Present: normal inspection, full ROM Lower leg exam: Present: normal inspection, full ROM Ankle exam: Present: normal inspection, full ROM Foot/toe exam: Present: normal inspection, full ROM Neurovascular/Tendon exam: Present: normal capillary refill, normal fine/light touch. Absent: motor deficit, sensory deficit, tendon deficit - Back Exam Back exam: Present: normal inspection, full ROM. Absent: tenderness, muscle spasm - Neurological Exam Neurological exam: Present: alert, oriented X3 - Expanded Neurological Exam Patient oriented to: Present: person, place, time Coma Scale Eye Opening: Spontaneous Coma Scale Motor Response: Obeys Commands Coma Scale Verbal Response: Oriented Coma Scale Total: 15 - Psychiatric Psychiatric exam: Present: normal affect, normal mood - Skin Skin exam: Present: warm, dry, intact, normal color Course Course Narrative: Patient seen evaluating saline given a multivitamin given thiamine and patient was given Phenergan for nausea checking labs make sure there is no evidence of any renal impairment or other metabolic disturbance area patient continues to complain of abdominal pain but is had no nausea no vomiting no diarrhea he has no focal pain or tenderness noted small burning type pain probably most likely consistent with the fact disease having irritation secondary to the alcohol but he is also had a positive opiate test just couple days ago as result patient will be admitted for management - Reevaluation(s) Reevaluation #1: Maintain the patient admitted to the hospital because he would not provide a urine sample for the majority of time he was here once is provided I spoke with Dr. Varma he is agreed for admission service Vital Signs Temperature 98.3 F 07/20/19 03:10 Pulse Rate 78 07/20/19 03:10 Respiratory Rate 18 07/20/19 03:10 Blood Pressure 128/62 07/20/19 03:10 O2 Sat by Pulse Oximetry 98 07/20/19 03:10 Temperature 98.3 F 07/20/19 03:10 Pulse Rate 59 07/20/19 06:30 Respiratory Rate 18 07/20/19 06:30 Blood Pressure 120/52 07/20/19 06:30 O2 Sat by Pulse Oximetry 96 07/20/19 06:30 Oxygen Delivery Oxygen Delivery Room Air Alcohol - Differential Diagnosis Differential Diagnosis: Likely: hypomagnesemia, acute alcohol intoxication, metabolic abnormality, alcohol withdrawal syndrome - Medical Records Medical records reviewed: Yes I reviewed the patient's medical records. - Lab Data Lab results reviewed: Yes I reviewed the patient's lab results. Result diagrams: 07/20/19 03:53 07/20/19 03:53 Lab Results 07/20/19 07/20/19 07/20/19 Range/Units 03:53 03:53 06:20 WBC 11.7 H D (4.3-11.1) K/mcL RBC 4.93 (4.19-5.50) M/mcL Hgb 15.3 D (12.9-16.9) g/dL Hct 45.1 (37.5-50.1) % MCV 91.5 (83.0-100.0) fL MCH 31.0 (28.0-33.3) pg MCHC 33.9 (31.6-35.5) g/dL RDW 12.5 (11.5-14.5) % Plt Count 331 (140-400) K/mcL MPV 9.7 (9.4-12.4) fL Immature Gran % 0.3 (0-4) % Seg Neutrophils % 87.6 % Lymphocytes % 7.5 % Monocytes % 4.3 % Eosinophils % 0.0 % Basophils % 0.3 % Neutrophils # 10.3 H (1.6-8.9) K/mcL Lymphocytes # 0.9 (0.6-4.6) K/mcL Monocytes # 0.5 (0.0-1.3) K/mcL Eosinophils # 0.0 (0.0-0.6) K/mcL Basophils # 0.0 (0.0-0.2) K/mcL Sodium 141 (136-145) mEq/L Potassium 3.7 (3.5-5.1) mEq/L Chloride 103 (98-107) mEq/L Carbon Dioxide 28 (23-29) mEq/L BUN 12 (6-20) mg/dL Creatinine 1.34 H (0.70-1.30) mg/dL Est GFR ( Amer) > 60 (> 60) Est GFR (Non-Af Amer) > 60 (> 60) BUN/Creatinine Ratio 9 (6-26) Glucose 117 H (70-105) mg/dL Calculated Osmolality 293 (280-300) Calcium 9.7 (8.6-10.3) mg/dL Total Bilirubin 0.5 (0.3-1.0) mg/dL AST 17 (13-39) Units/L ALT 19 (7-52) Units/L Alkaline Phosphatase 68 (34-104) Units/L Serum Total Protein 8.3 (6.4-8.9) g/dL Albumin 4.9 (3.5-5.7) g/dL Globulin 3.4 (2.4-3.5) g/dL Albumin/Globulin Ratio 1.4 (1.1-2.2) Urine Color Yellow (Yellow) Urine Clarity Clear (Clear) Urine pH 6.0 (5.0-8.0) pH Units Ur Specific [place] 1.025 (1.010-1.025) Urine Protein 30 H (Neg-Trace) mg/dL Urine Glucose (UA) Normal (Normal) mg/dL Urine Ketones Negative (Negative) mg/dL Urine Blood Trace-intact H (Negative) Urine Nitrite Negative (Negative) Urine Bilirubin Negative (Negative) Urine Urobilinogen Normal (Normal) mg/dL Ur Leukocyte Esterase Negative (Negative) Urine Microscopic RBC 0-3 (0-3) per hpf Ur Squamous Epith Cells Few (None-Few) per lpf Urine Bacteria Few (None-Few) per hpf Urine Mucus Moderate H (Few) Ur Culture Indicated? YES A (NO) Urine Opiates Screen (Jpqagm=175) ng/mL Ur Buprenorphine Scrn (Cutoff=5) ng/mL Ur Oxycodone Screen (Cutoff= 100) ng/mL Ur Barbiturates Screen (Nfbvxj=471) ng/mL Ur Phencyclidine Scrn (Cutoff=25) ng/mL Ur Amphetamines Screen (Bzuevw=0631) ng/mL U Benzodiazepines Scrn (Hfmdef=709) ng/mL Urine Cocaine Screen (Cutoff= 300) ng/mL U Marijuana (THC) Screen (Cutoff = 50) ng/mL Ur Drug Screen Interp Ethyl Alcohol < 10 (Less than 10) mg/dL 07/20/19 Range/Units 06:55 WBC (4.3-11.1) K/mcL RBC (4.19-5.50) M/mcL Hgb (12.9-16.9) g/dL Hct (37.5-50.1) % MCV (83.0-100.0) fL MCH (28.0-33.3) pg MCHC (31.6-35.5) g/dL RDW (11.5-14.5) % Plt Count (140-400) K/mcL MPV (9.4-12.4) fL Immature Gran % (0-4) % Seg Neutrophils % % Lymphocytes % % Monocytes % % Eosinophils % % Basophils % % Neutrophils # (1.6-8.9) K/mcL Lymphocytes # (0.6-4.6) K/mcL Monocytes # (0.0-1.3) K/mcL Eosinophils # (0.0-0.6) K/mcL Basophils # (0.0-0.2) K/mcL Sodium (136-145) mEq/L Potassium (3.5-5.1) mEq/L Chloride (98-107) mEq/L Carbon Dioxide (23-29) mEq/L BUN (6-20) mg/dL Creatinine (0.70-1.30) mg/dL Est GFR ( Amer) (> 60) Est GFR (Non-Af Amer) (> 60) BUN/Creatinine Ratio (6-26) Glucose (70-105) mg/dL Calculated Osmolality (280-300) Calcium (8.6-10.3) mg/dL Total Bilirubin (0.3-1.0) mg/dL AST (13-39) Units/L ALT (7-52) Units/L Alkaline Phosphatase (34-104) Units/L Serum Total Protein (6.4-8.9) g/dL Albumin (3.5-5.7) g/dL Globulin (2.4-3.5) g/dL Albumin/Globulin Ratio (1.1-2.2) Urine Color (Yellow) Urine Clarity (Clear) Urine pH (5.0-8.0) pH Units Ur Specific [place] (1.010-1.025) Urine Protein (Neg-Trace) mg/dL Urine Glucose (UA) (Normal) mg/dL Urine Ketones (Negative) mg/dL Urine Blood (Negative) Urine Nitrite (Negative) Urine Bilirubin (Negative) Urine Urobilinogen (Normal) mg/dL Ur Leukocyte Esterase (Negative) Urine Microscopic RBC (0-3) per hpf Ur Squamous Epith Cells (None-Few) per lpf Urine Bacteria (None-Few) per hpf Urine Mucus (Few) Ur Culture Indicated? (NO) Urine Opiates Screen Negative (Swadrz=395) ng/mL Ur Buprenorphine Scrn Negative (Cutoff=5) ng/mL Ur Oxycodone Screen Negative (Cutoff= 100) ng/mL Ur Barbiturates Screen Negative (Ceekgs=307) ng/mL Ur Phencyclidine Scrn Negative (Cutoff=25) ng/mL Ur Amphetamines Screen Negative (Wdoxty=9817) ng/mL U Benzodiazepines Scrn Positive H (Blyiqr=379) ng/mL Urine Cocaine Screen Negative (Cutoff= 300) ng/mL U Marijuana (THC) Screen Positive H (Cutoff = 50) ng/mL Ur Drug Screen Interp See Below Ethyl Alcohol (Less than 10) mg/dL Critical Care Time Critical Care Time: Yes Total Critical Care Time: 35 Attestation: High probability clinically significant life-threatening deterioration patient condition excluding separately reportable procedures as for seizing secondary to alcohol withdrawal
[2019-07-20] MEDS ORDERED: Thiamine (B-1) 100 MG, Folic Acid 1 MG, MVI, adult with vitamin K 10 ML in 0.9 % Sodi... IVPB SCH (03:31)
[2019-07-20 04:00] LABS: Basophils % 0.3 %; Hematocrit 45.1 % (37.5-50.1); Hemoglobin 15.3 g/dL (12.9-16.9); Immature Granulocytes % 0.3 % (0-4); Lymphocytes # 0.9 K/mcL (0.6-4.6); Lymphocytes % 7.5 %; Mean Corpuscular HGB Conc 33.9 g/dL (31.6-35.5); Mean Corpuscular Volume 91.5 fL (83.0-100.0); Mean Platelet Volume 9.7 fL (9.4-12.4); Monocytes # 0.5 K/mcL (0.0-1.3); Monocytes % 4.3 %; Platelet Count 331 K/mcL (140-400); Red Blood Count 4.93 M/mcL (4.19-5.50); Red Cell Distribution Width 12.5 % (11.5-14.5); Segmented Neutrophils % 87.6 %; White Blood Count 11.7 K/mcL (4.3-11.1)
[2019-07-20 04:03] LABS: Neutrophils # 10.3 K/mcL (1.6-8.9)
[2019-07-20 04:19] LABS: Alanine Aminotransferase 19 Units/L (7-52); Albumin 4.9 g/dL (3.5-5.7); Albumin/Globulin Ratio 1.4 (1.1-2.2); Alkaline Phosphatase 68 Units/L (34-104); Aspartate Amino Transferase 17 Units/L (13-39); BUN/Creatinine Ratio 9 (6-26); Bilirubin,Total 0.5 mg/dL (0.3-1.0); Blood Urea Nitrogen 12 mg/dL (6-20); Calcium 9.7 mg/dL (8.6-10.3); Carbon Dioxide 28 mEq/L (23-29); Chloride 103 mEq/L (98-107); Ethanol < 10 mg/dL (Less than 10); Globulin 3.4 g/dL (2.4-3.5); Glucose 117 mg/dL (70-105); Osmolality,Calculated 293 (280-300); Potassium 3.7 mEq/L (3.5-5.1); Sodium 141 mEq/L (136-145); Total Protein 8.3 g/dL (6.4-8.9); eGFR For African Americans > 60 (> 60); eGFR For Non-African Americans > 60 (> 60)
[2019-07-20 07:00] LABS: Bilirubin,Urine Negative (Negative); Blood,Urine Trace-intact (Negative); Clarity,Urine Clear (Clear); Color,Urine Yellow (Yellow); Glucose,Urine (UA) Normal (Normal); Ketones,Urine Negative (Negative); Leukocyte Esterase,Urine Negative (Negative); Nitrite,Urine Negative (Negative); Protein,Urine 30 mg/dL (Neg-Trace); Specific Gravity,Urine 1.025 (1.010-1.025); Urobilinogen,Urine Normal (Normal)
[2019-07-20 07:06] LABS: Bacteria,Urine Few per hpf (None-Few); Mucus,Urine Moderate (Few); RBC,Urine 0-3 per hpf (0-3); Squamous Epithelial Cell,Urine Few per lpf (None-Few)
[2019-07-20 07:22] LABS: Amphetamine Screen,Urine Negative ng/mL (Cutoff=1000); Barbiturate Screen,Urine Negative ng/mL (Cutoff=200); Benzodiazepines Screen,Urine Positive ng/mL (Cutoff=200); Cannabinoid Screen,Urine Positive ng/mL (Cutoff = 50); Cocaine Screen,Urine Negative ng/mL (Cutoff= 300); Opiate Screen,Urine Negative ng/mL (Cutoff=300); Phencyclidine Screen,Urine Negative ng/mL (Cutoff=25)
[2019-07-20] MEDS ORDERED: Famotidine 20 MG/2 ML VIAL IVP ONE (07:35)
[2019-07-20] MEDS ORDERED: Ondansetron 4 MG/2 ML VIAL IVP ONE (07:35)
[2019-07-20] MEDS ORDERED: 0.9 % Sodium Chloride 1,000 ML IVC SCH (09:30)
[2019-07-20] MEDS ORDERED: Naloxone 0.4 MG/ML INJ IVP PRN (09:30)
[2019-07-20] MEDS: Ondansetron 4 MG/2 ML VIAL IVP SCH ×2 (09:58→14:12)
[2019-07-20] MEDS ORDERED: GI Cocktail 40 ML EACH PO ONE (12:14)
--- NOTE | 2019-07-20 12:22 | Internal Med History&Physical ---
Date of Encounter: 07/20/19 Time of Encounter: 11:45 Assessment and Plan (1) Neutrophilic leukocytosis Current visit: Yes Status: Acute Temperature was 101.1 in ER. Suspect viral gastroneuritis in addition to alcohol withdrawal. (2) Azotemia Current visit: Yes Status: Acute Creatinine has shown significant fluctuation in the past year. IV fluids will be given and labs rechecked in a.m. (3) Alcohol withdrawal Current visit: No Status: Acute Serax has been ordered. Qualifiers: Complication of substance-induced condition: uncomplicated Qualified Code(s): F10.230 - Alcohol dependence with withdrawal, uncomplicated Internal Medicine - H&P: HPI Chief complaint: Abdominal pain and vomiting Admitted From: Emergency Dept Plans for Post Hospital Care: Home History of present illness: Mr. Zuniga is a 33 year old male who came to emergency room stating he had onset of vomiting the previous day after attempting to stop heavy alcohol consumption 3 days ago. He reports drinking approximately one Simpson of beer daily plus a fifth of whiskey weekly. He was seen in emergency room 07/13/2019 with similar complaints and was given Librium and referred to health clinic for professional intervention for substance abuse. He reports he returned to drinking for a few days but then again tried to abruptly stop alcohol consumption. He was e valuated in emergency room and admitted to [facility] floor for ongoing care needs. He reports seeing some bright red blood in the vomitus. He reports using approximately 4 ibuprofen OTC in the past week. GI history is pertinent for cholecystectomy December 2017. He denies known disorders of his liver or exocrine pancreas. CT of abdomen/pelvis in emergency room 07/13/2019 showed no acute pathology. Past Med Surg Social Fam HX - Past Medical History Medical history: arthritis, GERD, other Additional medical history: DRUG AND ALCOHOL ABUSE Psychiatric history: anxiety - Past Surgical History Surgical History: cholecystectomy, other Additional surgical history: surgery as infant on gland in neck - Social History Smoking Status: Former smoker Smokeless Tobacco Status: No Alcohol use: heavy Drug use: opiates, marijuana - Family History Mother Family Member Ethnicity: Non- Living Status: Still Living Hx Family GI Disorders: Yes (GB) Father Family Member Ethnicity: Non- Living Status: Still Living Hx Family Cardiac Disorders: Yes (HD, HTN) Hx Family GI Disorders: Yes (GB) Brother Family Member Ethnicity: Non- Living Status: Still Living Sister Family Member Ethnicity: Non- Living Status: Still Living Grandmother Family Member Ethnicity: Non- Living Status: Still Living Hx Family Cardiac Disorders: Yes (HD, HTN, HLD) Hx Family Endocrine Disorder: Yes (DM) Grandfather Family Member Ethnicity: Non- Living Status: Hx Family Cardiac Disorders: Yes (CVA) Hx Family Neurologic Disorders: Yes (CVA) Internal Medicine - H&P: Meds Chlordiazepoxide [Librium] 50 mg PO TID 5 Days #30 capsule 07/13/19 [Rx] HYDROcodone/Acet 5/325 mg [[place] 5-325 mg] 1 tab PO Q4H PRN 2 Days #5 tab 07/13/19 [Rx] Ondansetron ODT [Zofran ODT] 4 mg SL Q6HR #10 tab.rapdis 07/13/19 [Rx] Allergy/AdvReac Type Severity Reaction Status Date / Time No Known Allergies Allergy Verified 01/19/19 14:56 All Systems PM: A 10-system review of systems was performed and is negative for pertinent findings except as documented above in the HPI. Review of systems: Review of systems from his May 2017 [facility] hospitalization were reviewed and revised as below. Gen.: His weight is minimally changed from 135.369 kg on 05/19/2017 to present with 134.972 kg. Cardiovascular: He denies RI hypertension heart failure angina DVT or pulmonary embolus Respiratory: He is a lifelong nonsmoker cigarettes. He smokes marijuana daily. He denies chronic lung disease GI: As per history of present illness : He denies hematuria dysuria or kidney stones Neurologic: He denies large distribution strokes or seizures fainting spells or migraine headaches Endocrine: He denies diabetes thyroid disease or hyperlipidemia Hematology/oncology: He denies blood disorders cancers or anemia Psychiatric: Has occasional feelings of anxiety. He denies other mental health diagnoses [place] skeletal: Denies arthritis gout or other bone joint or muscle disorders - Constitutional Vitals: Temp Pulse Resp BP Pulse Ox 99.9 F H 57 16 116/72 97 07/20/19 11:30 07/20/19 11:30 07/20/19 11:30 07/20/19 11:30 07/20/19 11:30 Exam: Gen.: He is a well-developed overweight male lying in bed who appears in mild discomfort. He complains of abdominal pain. HEENT: Head is atraumatic and normocephalic. Eyes: EOMI. There is no scleral icterus. Mouth: Mucosa is moist. Neck: Supple and nontender. There is no thyromegaly or adenopathy noted. Heart: Regular without murmurs gallops or ectopics Lungs: No wheezes or crackles are heard. Abdomen: He complains of tenderness on light palpation. Bowel sounds are diminished. No masses or guarding are noted. Extremities: There is no cyanosis edema or clubbing noted. Dorsalis pedis and posterior tibial pulses are 1-2 over 2 bilaterally. Neurologic: Mental status: He is talkative and a good historian. Cranial nerves: Smile is symmetric. Forehead reveals bilaterally. Tongue protrudes midline. EOMI. Motor: There is no pronator drift. Cerebellar: Finger to nose is intact bilaterally. Skin: Warm and dry Internal Med - H&P Results - Labs CBC & Chem 7: 07/20/19 03:53 07/20/19 03:53 Labs: Short CBC 07/20/19 Range/Units 03:53 WBC 11.7 H D (4.3-11.1) K/mcL Hgb 15.3 D (12.9-16.9) g/dL Hct 45.1 (37.5-50.1) % Plt Count 331 (140-400) K/mcL Neutrophils # 10.3 H (1.6-8.9) K/mcL BMP 07/20/19 03:53 Sodium 141 Potassium 3.7 Chloride 103 Carbon Dioxide 28 BUN 12 Creatinine 1.34 H Glucose 117 H Calcium 9.7 Liver Function 07/20/19 Range/Units 03:53 Total Bilirubin 0.5 (0.3-1.0) mg/dL AST 17 (13-39) Units/L ALT 19 (7-52) Units/L Alkaline Phosphatase 68 (34-104) Units/L Albumin 4.9 (3.5-5.7) g/dL Urine 07/20/19 Range/Units 06:20 Urine Color Yellow (Yellow) Urine Clarity Clear (Clear) Urine pH 6.0 (5.0-8.0) pH Units Ur Specific [place] 1.025 (1.010-1.025) Urine Protein 30 H (Neg-Trace) mg/dL Urine Glucose (UA) Normal (Normal) mg/dL
[2019-07-20 12:57] LABS: Phosphorous 2.9 mg/dL (2.7-4.5)
[2019-07-20] MEDS: 0.45 % Sodium Chloride w/KCl 20 MEQ/1,000 ML MLS IVC SCH (14:13)
[2019-07-20] MEDS: *HR* Promethazine 25 MG/ML VIAL IVP PRN (16:30)
[2019-07-20] MEDS: Morphine Sulfate 2 MG/ML SYRINGE IVP PRN ×2 (17:18→23:43)
[2019-07-20] MEDS: Ondansetron 4 MG/2 ML VIAL IVP PRN ×2 (17:18→23:44)
[2019-07-20] MEDS: Thiamine (B-1) 100 MG, Folic Acid 1 MG, MVI, adult with vitamin K 10 ML in 0.9 % Sodi... IVPB SCH (17:18)
[2019-07-20] MEDS: *HR* LORazepam 2 MG/ML VIAL IVP PRN ×2 (17:18→23:44)
[2019-07-21] MEDS: *HR* LORazepam 2 MG/ML VIAL IVP PRN ×4 (04:49→21:27)
[2019-07-21] MEDS: Ondansetron 4 MG/2 ML VIAL IVP PRN ×4 (04:49→21:26)
[2019-07-21] MEDS: Morphine Sulfate 2 MG/ML SYRINGE IVP PRN ×5 (04:50→21:27)
[2019-07-21 05:25] LABS: Basophils # 0.1 K/mcL (0.0-0.2); Basophils % 0.4 %; Eosinophils % 0.2 %; Hematocrit 42.8 % (37.5-50.1); Hemoglobin 14.5 g/dL (12.9-16.9); Immature Granulocytes % 0.3 % (0-4); Lymphocytes # 2.4 K/mcL (0.6-4.6); Lymphocytes % 19.5 %; Mean Corpuscular HGB Conc 33.9 g/dL (31.6-35.5); Mean Corpuscular Volume 91.5 fL (83.0-100.0); Mean Platelet Volume 9.9 fL (9.4-12.4); Monocytes # 1.3 K/mcL (0.0-1.3); Monocytes % 10.5 %; Neutrophils # 8.6 K/mcL (1.6-8.9); Platelet Count 319 K/mcL (140-400); Red Blood Count 4.68 M/mcL (4.19-5.50); Red Cell Distribution Width 12.8 % (11.5-14.5); Segmented Neutrophils % 69.1 %; White Blood Count 12.4 K/mcL (4.3-11.1)
[2019-07-21 05:42] LABS: BUN/Creatinine Ratio 10 (6-26); Blood Urea Nitrogen 13 mg/dL (6-20); Calcium 9.1 mg/dL (8.6-10.3); Carbon Dioxide 27 mEq/L (23-29); Chloride 104 mEq/L (98-107); Glucose 94 mg/dL (70-105); Osmolality,Calculated 290 (280-300); Potassium 3.7 mEq/L (3.5-5.1); Sodium 140 mEq/L (136-145); eGFR For African Americans > 60 (> 60); eGFR For Non-African Americans > 60 (> 60)
[2019-07-21] MEDS: 0.45 % Sodium Chloride w/KCl 20 MEQ/1,000 ML MLS IVC SCH ×3 (06:16→23:49)
--- NOTE | 2019-07-21 10:25 | Internal Med Progress Note ---
Date of Encounter: 07/21/19 Time of Encounter: 10:15 - Assessment and plan (1) Neutrophilic leukocytosis Current Visit: Yes Status: Acute Assessment and plan: July 21. WBC minimally higher 12.4 but resolution of left shift on differential. Continue present Rx and recheck labs in a.m. (2) Azotemia Current Visit: Yes Status: Acute Assessment and plan: July 21. Creatinine improved at 1.27. Continue IV fluids and recheck labs in a.m. (3) Alcohol withdrawal Current Visit: No Status: Acute Assessment and plan: July 21. Continue Serax and prn Ativan. Qualifiers: Complication of substance-induced condition: uncomplicated Qualified Code(s): F10.230 - Alcohol dependence with withdrawal, uncomplicated - Subjective Interval history: July 21. He has no new complaints. He states he still has abdominal discomfort. Diarrhea has lessened. - Constitutional Vitals: Temp Pulse Resp BP Pulse Ox 98.9 F 59 20 112/62 96 07/21/19 07:00 07/21/19 07:00 07/21/19 07:00 07/21/19 07:00 07/21/19 05:24 Exam: He is lying in bed and appears in no acute distress. Abdomen is nontender to palpation. Bowel sounds are diminished. I reviewed his medications and lab results. Internal Medicine: Result - Labs CBC & Chem 7: 07/21/19 04:35 07/21/19 04:35 Labs: Short CBC 07/21/19 Range/Units 04:35 WBC 12.4 H (4.3-11.1) K/mcL Hgb 14.5 (12.9-16.9) g/dL Hct 42.8 (37.5-50.1) % Plt Count 319 (140-400) K/mcL Neutrophils # 8.6 (1.6-8.9) K/mcL BMP 07/21/19 04:35 Sodium 140 Potassium 3.7 Chloride 104 Carbon Dioxide 27 BUN 13 Creatinine 1.27 Glucose 94 Calcium 9.1 Consult Discharge Plan - Plan Referrals: NONE,PCP [Primary Care Provider] - 1 week
[2019-07-21] MEDS: Mag Hydrox/Al Hydrox/Simeth 30 ML UDC PO PRN (14:02)
[2019-07-21] MEDS ORDERED: GI Cocktail 40 ML EACH PO ONE (14:40)
[2019-07-21] MEDS: *HR* Promethazine 25 MG/ML VIAL IVP PRN (17:29)
[2019-07-21] MEDS: Thiamine (B-1) 100 MG, Folic Acid 1 MG, MVI, adult with vitamin K 10 ML in 0.9 % Sodi... IVPB SCH (17:29)
[2019-07-21 23:05] LABS: Basophils # 0.1 K/mcL (0.0-0.2); Basophils % 0.5 %; Eosinophils % 0.2 %; Hematocrit 42.8 % (37.5-50.1); Hemoglobin 14.7 g/dL (12.9-16.9); Immature Granulocytes % 0.3 % (0-4); Lymphocytes # 2.3 K/mcL (0.6-4.6); Lymphocytes % 17.5 %; Mean Corpuscular HGB Conc 34.3 g/dL (31.6-35.5); Mean Corpuscular Hemoglobin 31.1 pg (28.0-33.3); Mean Corpuscular Volume 90.7 fL (83.0-100.0); Mean Platelet Volume 9.6 fL (9.4-12.4); Monocytes # 1.2 K/mcL (0.0-1.3); Monocytes % 9.4 %; Neutrophils # 9.3 K/mcL (1.6-8.9); Platelet Count 357 K/mcL (140-400); Red Blood Count 4.72 M/mcL (4.19-5.50); Red Cell Distribution Width 12.5 % (11.5-14.5); Segmented Neutrophils % 72.1 %; White Blood Count 12.9 K/mcL (4.3-11.1)
[2019-07-21 23:23] LABS: ABG Base Excess -1 mEq/L (-2 to 3); ABG HCO3 25 mEq/L (21-27); ABG Oxygen Saturation 96 % (95-98); ABG PCO2 46 mmHg (35-45); ABG PH 7.35 pH Units (7.32-7.45); ABG PO2 84 mmHg (85-104); ABG TCO2 27 mEq/L (20-26)
[2019-07-21 23:24] LABS: BUN/Creatinine Ratio 7 (6-26); Blood Urea Nitrogen 11 mg/dL (6-20); Carbon Dioxide 24 mEq/L (23-29); Chloride 102 mEq/L (98-107); Glucose 130 mg/dL (70-105); Osmolality,Calculated 283 (280-300); Potassium 3.5 mEq/L (3.5-5.1); Sodium 136 mEq/L (136-145); eGFR For African Americans > 60 (> 60); eGFR For Non-African Americans 51 (> 60)
[2019-07-22] MEDS: Mag Hydrox/Al Hydrox/Simeth 30 ML UDC PO PRN (02:40)
[2019-07-22] MEDS: 0.45 % Sodium Chloride w/KCl 20 MEQ/1,000 ML MLS IVC SCH (04:54)
[2019-07-22] MEDS: Morphine Sulfate 2 MG/ML SYRINGE IVP PRN (06:29)
[2019-07-22] MEDS: Ondansetron 4 MG/2 ML VIAL IVP PRN (06:31)
[2019-07-22 08:29] VITALS: BP 97/58
[2019-07-22] MEDS: *HR* LORazepam 2 MG/ML VIAL IVP PRN (08:44)
--- NOTE | 2019-07-22 10:24 | Discharge Summary ---
Date of Encounter: 07/22/19 Time of Encounter: 10:15 - Discharge Diagnosis (1) Neutrophilic leukocytosis Priority: Primary Status: Acute (2) Azotemia Priority: Secondary Status: Acute (3) Alcohol withdrawal Priority: Secondary Status: Acute Qualifiers: Complication of substance-induced condition: uncomplicated Qualified Code(s): F10.230 - Alcohol dependence with withdrawal, uncomplicated Hospital course: Mr. Zuniga is a 33 year old male who came to emergency room stating he had onset of vomiting the previous day after attempting to stop heavy alcohol consumption 3 days ago. He reports drinking approximately one case of beer daily plus a fifth of whiskey weekly. He was seen in emergency room 07/13/2019 with similar complaints and was given Librium and referred to health clinic for professional intervention for substance abuse. He reports he returned to drinking for a few days but then again tried to abruptly stop alcohol consumption. He was evaluated in emergency room and admitted to [facility] floor for ongoing care needs. Initial orders were written by the emergency room physician. I saw him on July 20 and performed a history and physical. I felt he likely had viral gastroenteritis superimposed on alcohol withdrawal. Temperature was 101.1 in ER but he remained afebrile after the first hospital day. Ativan was given prn for alcohol withdrawal. He had no significant [facility] He will be given Zofran and Ativan at discharge to assist in alcohol withdrawal symptoms. IV fluids were given. Creatinine evan slightly to 1.59 by day of discharge. Review of archived labs show significant fluctuation in creatinine level with 06/03/2018 level of 1.85. His PCP can monitor renal function and refer to nephrology as needed. On July 22 he felt significantly improved and back to baseline and wished to be discharged home. He selected to [facility] at [facility] with a PCP. - Time Spent with Patient Total time spent providing and/or coordinating discharge services: - Discharge Medications Prescriptions: New LORazepam [Ativan] 1 mg PO QID PRN 3 Days #12 tablet PRN Reason: Anxiety Ondansetron ODT [Zofran ODT] 4 mg SL Q6HR PRN #12 tab.rapdis PRN Reason: Nausea Continued HYDROcodone/Acet 5/325 mg [[place] 5-325 mg] 1 tab PO Q4H PRN 2 Days #5 tab PRN Reason: Pain Ondansetron ODT [Zofran ODT] 4 mg SL Q6HR #10 tab.rapdis Discontinued Chlordiazepoxide [Librium] 50 mg PO TID 5 Days #30 capsule Home Medications: HYDROcodone/Acet 5/325 mg [[place] 5-325 mg] 1 tab PO Q4H PRN 2 Days #5 tab 07/13/19 [Rx] Ondansetron ODT [Zofran ODT] 4 mg SL Q6HR #10 tab.rapdis 07/13/19 [Rx] LORazepam [Ativan] 1 mg PO QID PRN 3 Days #12 tablet 07/22/19 [Rx] Ondansetron ODT [Zofran ODT] 4 mg SL Q6HR PRN #12 tab.rapdis 07/22/19 [Rx] Allergies/Adverse Reactions: Allergy/AdvReac Type Severity Reaction Status Date / Time No Known Allergies Allergy Verified 01/19/19 14:56 Date of admission: 07/20/19 07:59 Primary care physician: PCP NONE - Constitutional Vitals: Temp Pulse Resp BP Pulse Ox 98.9 F 87 17 97/58 96 07/22/19 08:28 07/22/19 08:28 07/22/19 08:28 07/22/19 08:28 07/22/19 08:28 - Patient Status Disposition: Home, Self-Care Condition: Fair - Discharge Instructions Follow Up With: NONE,PCP [Primary Care Provider] - 1 week - Diet and Activity Activity: resume usual activities as tolerated Diet: advance to your usual diet
--- NOTE | 2019-07-22 17:33 | Electrocardiograph Report ---
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
== END 2019-07-22 11:11 | disposition home or self-care (01) ==
LOC: EMEROOPIK 03:08 → INPPIK 03:08
PROVIDERS: ADMIT Internal Medicine; ATTEND Internal Medicine